=== PATIENT | male | born 1970 | race Caucasian/White ===

== ENCOUNTER 2016-10-20 22:10 | Outpatient (CLI) | payer BC | END 2016-10-20 22:11 | disposition home or self-care (01) | DX: R22.41 Localized swelling, mass and lump, right lower limb (principal); M79.661 Pain in right lower leg ==

== ENCOUNTER 2016-11-04 08:00 | Outpatient (CLI) | payer BC | END 2016-11-04 08:01 | disposition home or self-care (01) | DX: R25.2 Cramp and spasm (principal) ==

== ENCOUNTER 2016-12-21 12:49 | Outpatient (CLI) | payer BC | END 2016-12-21 12:50 | disposition home or self-care (01) | LOC: LAB 12:49 | PROVIDERS: ATTEND Physician Assistant Medical | DX: R25.2 Cramp and spasm (principal) | CPT/HCPCS: 36415; 82140; 83605 ==

== ENCOUNTER 2016-12-23 18:08 | Outpatient (CLI) | payer BC | END 2016-12-23 18:09 | disposition home or self-care (01) | DX: R19.03 Right lower quadrant abdominal swelling, mass and lump (principal); R25.2 Cramp and spasm ==

== ENCOUNTER 2018-09-08 05:06 | Outpatient (CLI) | payer BC ==
[2018-09-08 05:49] LABS: BASOPHILS # (AUTO) 0.1 10^3/uL (0.0-0.1); BASOPHILS % (AUTO) 0.9 %; EOSINOPHILS % (AUTO) 15.4 %; HGB - HEMOGLOBIN 14.8 g/dL (14.0-18.0); LYMPHOCYTES # (AUTO) 2.2 10^3/uL (1.5-3.5); LYMPHOCYTES % (AUTO) 34.4 %; MEAN CORPUSCULAR HEMOGLOBIN 30.9 pg (27.0-31.0); MEAN CORPUSCULAR HGB CONC 34.9 g/dL (32.0-36.0); MEAN CORPUSCULAR VOLUME 88.5 fL (80.0-94.0); MEAN PLATELET VOLUME 7.6 fL (7.4-11.4); MONOCYTES # (AUTO) 0.4 10^3/uL (0.0-1.0); MONOCYTES % (AUTO) 6.5 %; NEUTROPHILS # (AUTO) 2.7 10^3/uL (1.5-6.6); NEUTROPHILS % (AUTO) 42.8 %; PLT - PLATELET COUNT 262 10^3/uL (130-450); RED CELL DISTRIBUTION WIDTH 13.1 % (12.0-15.0); WHITE BLOOD COUNT 6.4 x10^3/uL (4.8-10.8)
[2018-09-08 06:03] LABS: ALBUMIN 4.4 g/dL (3.2-5.5); ALBUMIN/GLOBULIN RATIO 1.6 (1.0-2.2); ALKALINE PHOSPHATASE 56 IU/L (42-121); ALT ALANINE AMINOTRANSFERASE 23 IU/L (10-60); AST ASPARTATE AMINOTRANSFERASE 22 IU/L (10-42); BILIRUBIN,TOTAL 0.7 mg/dL (0.2-1.0); BUN - BLOOD UREA NITROGEN 18 mg/dL (6-20); CALCIUM 9.2 mg/dL (8.5-10.3); CARBON DIOXIDE - CO2 29 mmol/L (21-32); CHLORIDE 104 mmol/L (101-111); CHOL/HDL RATIO 3.4 (<5.0); CHOLESTEROL 161 mg/dL; GFR - MDRD 80 (>89); GLUCOSE 102 mg/dL (70-100); HDL CHOLESTEROL 47 mg/dL; LDL CHOLESTEROL,CALCULATED 95 mg/dL; SODIUM 142 mmol/L (135-145); TOTAL PROTEIN 7.2 g/dL (6.7-8.2); VLDL CHOLESTEROL 19 mg/dL
[2018-09-08 06:09] LABS: CRP - C-REACTIVE PROTEIN < 0.1 mg/dL (0-1.0)
[2018-09-08 06:39] LABS: THYROID STIMULATING HORMONE 1.58 uIU/mL (0.34-5.60)
[2018-09-08 06:42] LABS: FREE T4 (FREE THYROXINE) 0.91 ng/dL (0.58-1.64)
== END 2018-09-08 05:07 | disposition home or self-care (01) ==
LOC: LAB 05:06
PROVIDERS: ATTEND Internal Medicine
DX: M79.10 Myalgia, unspecified site (principal); R25.2 Cramp and spasm; R61 Generalized hyperhidrosis; Z13.6 Encounter for screening for cardiovascular disorders; Z13.1 Encounter for screening for diabetes mellitus
CPT/HCPCS: 36415; 80053; 80061; 83721; 84439; 84443; 85025; 85651; 86140